=== PATIENT | male | born 1970 | race Caucasian/White ===

== ENCOUNTER 2022-07-15 08:28 | Inpatient (IN) ==
[2022-07-15 10:14] LABS: Basophils # (Auto) 0.01 K/mcL (0.00-0.30); Basophils % (Auto) 0.1 % (0.0-2.0); Eosinophils # (Auto) 0 K/mcL (0.00-0.70); Eosinophils % (Auto) 0 % (0.0-7.0); Hematocrit 46.4 % (40.1-51.0); Hemoglobin 14.7 g/dL (13.7-17.5); Lymphocytes # (Auto) 1.49 K/mcL (1.50-4.80); Lymphocytes % (Auto) 15.1 % (15.5-49.0); Mean Cell Volume 85.6 fL (80.0-100.0); Mean Corpuscular HGB Conc 31.7 g/dL (31.0-36.0); Mean Platelet Volume 10.7 fL (8.8-12.5); Monocytes # (Auto) 0.91 K/mcL (0.10-0.90); Monocytes % (Auto) 9.2 % (1.0-12.0); Neutrophils % (Auto) 75.2 % (38.0-78.0); Platelet Count 207 K/mcL (140-440); RBC 5.42 M/mcL (4.63-6.08); Red Cell Distribution Width 15.5 % (11.5-14.5); WBC 9.9 K/mcL (4.5-11.0)
[2022-07-15 10:35] LABS: ALT/SGPT 15 U/L (<40); AST/SGOT 34 U/L (<40); Albumin 4.4 gm/dL (3.2-5.2); Albumin/Globulin Ratio 1.3 (1.0-2.3); Alkaline Phosphatase 103 U/L (39-117); Bilirubin,Total 0.6 mg/dL (0.1-1.0); Blood Urea Nitrogen 21 mg/dL (6-20); Calcium 9.7 mg/dL (8.6-10.4); Carbon Dioxide 32 mmol/L (22-30); Chloride 98 mmol/L (96-108); Globulin 3.3 gm/dL (2.2-3.7); Glomerular Filtration Rate 104; Glucose 128 mg/dL (70-105)
--- NOTE | 2022-07-15 12:49 | Cat Scan Report ---
CLINICAL INFORMATION: Recurrent vomiting abdominal pain COMPARISON: Abdomen and pelvic CT TECHNIQUE: 0.625 mm helical slices were obtained from the mid heart through the subtrochanteric regions. Following reconstruction, 2.5 mm sagittal, coronal and axial reformatted images were processed and reviewed at bone and soft tissue windows.The exam was performed using radiation dose optimization techniques including, but not limited to, automated exposure control, adjustment of the mA and/or kV according to patient size and use of iterative reconstruction technique. FINDINGS: The lung bases are clear. No effusions. The visualized heart is grossly normal. Moderate hiatal hernia again noted. Abdominal images show the noncontrasted gallbladder is mildly enlarged with diffuse wall thickening and pericholecystic fluid compatible with cholecystitis. No stones identified. Intrahepatic and common bile ducts are normal caliber: CBD is 6 mm. Noncontrast liver, both kidneys, adrenal glands, spleen, pancreas and aorta, including aortic branches, are normal in size, configuration and attenuation without focal lesion. There is no free air, free fluid or adenopathy. Pelvic images show normal noncontrasted bladder is moderately distended. Prostate and seminal vesicles are normal. A large amount of stool is present within the rectum and distal sigmoid. Moderate amount of stool seen within the remainder of the colon stomach and small large bowel are normal caliber however. Appendix region is normal. Bone windows show no osseous abnormalities. IMPRESSION: 1. Acute cholecystitis. 2. Large amount of stool within the distal sigmoid and rectum-suspect fecal impaction. Moderate stool seen throughout the remainder of the colon. 3. Moderate hiatal hernia-stable 4. Moderate urinary bladder distention Interpreted and Authenticated by: Gus Echavarria 07/15/22
[2022-07-15] MEDS ORDERED: metroNIDAZOLE 500 MG/100 ML BAG IV SCH (13:45)
[2022-07-15] MEDS ORDERED: PIPERACILLIN SODIUM/TAZOBACTAM 3.375 GM in DEXTROSE 5% IN WATER 50 ML IV SCH (13:45)
--- NOTE | 2022-07-15 15:28 | Internal Med History&Physical ---
HPI History of Present Illness Patient information: Note initiated : 07/15/22 at 3:27 pm Service Date, if different from initiated Date: [] Patient: Dwight Salazar a 52 y/o M admitted on for possible small bowl obstruction. Chief Complaint: [] History of present illness: Mr. Salazar is a 52 year old male with history of schizophrenia, traumatic brain injury, parkinsonian syndrome, cognitive problems, limited verbal communication, history of priapism status post penile shunt, severe constipation, hiatal hernia, resides in long-term facility, patient's power of disk sharpener is Marcelo Zhao presented from long-term facility with multiple episodes of vomiting. History is limited since patient is pretty much nonverbal. On presentation patient had temp of 99.3, hemodynamically stable. CBC showed WBC 9.9, hemoglobin 14.7, normal renal and liver function CT scan abdominal pelvis without contrast showed gallbladder mildly enlarged, diffuse wall thickening, pericholecystic fluid compatible with cholecystitis. No gallstones identified, intrahepatic and common bile ducts are normal caliber, CBD 6 mm. Bladder is moderately distended, prostate and seminal vesicle are normal. Large amount of stool is present within the rectum and distal sigmoid, moderate amount of stool within the remainder of colon. small bowel normal caliber. On evaluation patient was laying in bed comfortably, he was not having any nausea or vomiting. Abdominal exam demonstrated some voluntary guarding as patient would tense his abdomen in anticipation of exam but no tenderness, rebound or rigidity. Ultrasound abdomen showed gallstones and again cholecystitis. Review of systems 14 point review of system completed. It was negative except mentioned above. Review of system was also limited due to patient limited communication Physical examination General General appearance: Present alert slightly unkempt, appears comfortable, nontoxic Head Head: Present atraumatic and normocephalic Eye Eye: Present normal appearance and EOMI ENT ENT: Present normal exam and mucous membranes moist Neck Neck: Present normal inspection and full ROM Chest Chest: Present normal inspection and symmetric chest wall rise Respiratory Respiratory: Absent respiratory distress Cardiovascular Cardiovascular: Present regular rate and normal rhythm Adbominal Abdominal: Present soft; Absent tenderness : Present circumcised no evidence of priapism Extremities Extremities: Present normal inspection and full ROM Neurological Neurological: Present alert, cognitive deficits due to TBI, follows command intermittently Psychiatric Psychiatric: Present normal affect and normal mood Skin Skin: Present warm (WNL), dry and normal color Assessment and plan 52 year old male with history of schizophrenia, traumatic brain injury, parkinsonian syndrome, cognitive problems, limited verbal communication, history of priapism status post penile shunt, severe constipation presented with multiple episodes of vomiting. Acute calculus cholecystitis CT scan abdomen without contrast with mildly enlarged gallbladder, wall thickening and pericholecystic fluid concerning for cholecystitis. Ultrasound gallbladder showed gallstones and cholecystitis. Patient with no fever, LFTs normal and lipase normal. Abdominal exam equivocal. Dr. Sanford and seen patient and will be following patient Severe constipation Dr. Jeff plans to do manual disimpaction in ER. Patient will need aggressive bowel regimen. Will give Fleet enema twice daily. We will keep him n.p.o. since patient was having nausea and vomiting. Schizophrenia, continue home meds Traumatic brain injury, at baseline Parkinsonian syndrome, continue home meds DVT prophylaxis with SCDs CODE STATUS, DNR/DNI Total time taken 50 minutes PFSH PFSH All Active Problems (Updated 07/15/22 @ 16:16 by Angelo Sanford MD) Nausea & vomiting (Acute) Priapism (Acute) Anemia (Acute) Urinary retention (Acute) Schizophrenia (Acute) Parkinsonian syndrome (Acute) Acute constipation (Acute) MEDS/ALLERGIES Home Medications and Allergies Home Medications Medication Instructions Recorded Confirmed Type acetaminophen 325 mg tablet 650 mg PO Q6H PRN pain 07/30/21 11/13/21 History carbidopa 25 mg-levodopa 250 mg 0.5 tab PO TID 07/30/21 08/11/21 History tablet citalopram 20 mg tablet 20 mg PO DAILY 07/30/21 11/13/21 History divalproex 125 mg tablet,delayed 125 mg PO TID 07/30/21 11/13/21 History release (Depakote) docusate sodium 100 mg capsule 100 mg PO BID 07/30/21 11/13/21 History (Colace) quetiapine 100 mg tablet (Seroquel) 100 mg PO QHS 07/30/21 11/13/21 History risperidone 2 mg tablet (Risperdal) 2 mg PO QDAY 07/30/21 11/13/21 History simethicone 80 mg tablet 80 mg PO TID 07/30/21 11/13/21 History tamsulosin 0.4 mg capsule (Flomax) 0.4 mg PO 1500 07/30/21 11/13/21 History haloperidol 5 mg tablet 2.5 mg PO QDAY PRN Agitation #10 08/01/21 11/13/21 Rx tabs tramadol 50 mg tablet 50 mg PO TID PRN Pain, Moderate 08/01/21 11/13/21 Rx #10 tabs bisacodyl 10 mg rectal suppository 10 mg DC QDAY PRN 08/11/21 11/13/21 History (Dulcolax (bisacodyl)) famotidine 20 mg tablet 20 mg PO QDAY 08/11/21 11/13/21 History fluticasone propionate 50 1 spray intranasal QDAY 08/11/21 11/13/21 History mcg/actuation nasal spray,suspension magnesium hydroxide 400 mg/5 mL 30 ml PO QDAY PRN 08/11/21 11/13/21 History oral suspension (Milk of Magnesia) sodium phosphates 19 gram-7 118 ml DC ONCE 08/11/21 11/13/21 History gram/118 mL enema (Fleet Enema) bisacodyl 10 mg rectal suppository 10 mg DC QDAY #3 ea 05/08/22 Rx (Dulcolax (bisacodyl)) Allergies Allergy/AdvReac Type Severity Reaction Status Date / Time azithromycin Allergy Unknown Other Verified 07/15/22 18:13 Erythromycin Base Allergy Unknown Other Verified 07/15/22 18:13 nitrofurantoin Allergy Unknown Other Verified 07/15/22 18:13 [From Macrobid] tetracycline Allergy Unknown Other Verified 07/15/22 18:13 EXAM Constitutional Vitals: Temp Pulse BP Pulse Ox O2 Del Method 99.3 F H 72 103/76 93 Room Air 07/15/22 08:35 07/15/22 11:16 07/15/22 09:16 07/15/22 08:35 07/15/22 08:35 DATA Data Completed and Pending Labs: Labs from last 24 hours 07/15/22 07/15/22 09:50 09:50 WBC 9.9 RBC 5.42 Hgb 14.7 Hct 46.4 MCV 85.6 MCH 27.1 MCHC 31.7 RDW 15.5 H Plt Count 207 MPV 10.7 Immature Gran % (Auto) 0.4 Neut % (Auto) 75.2 Lymph % (Auto) 15.1 L [place] % (Auto) 9.2 Eos % (Auto) 0 Baso % (Auto) 0.1 Lymph # (Auto) 1.49 L [place] # (Auto) 0.91 H Eos # (Auto) 0 Baso # (Auto) 0.01 Immature Gran # 0.04 Absolute Neutrophils 7.42 Sodium 141 Potassium 4.3 Chloride 98 Carbon Dioxide 32 H Anion Gap 11.0 BUN 21 H Creatinine 0.8 GFR Calculation 104 Glucose 128 H Calcium 9.7 Total Bilirubin 0.6 AST 34 ALT 15 Alkaline Phosphatase 103 Total Protein 7.7 Albumin 4.4 Globulin 3.3 Albumin/Globulin Ratio 1.3 Lipase 23 A/P Time Spent With Patient Time: Total time spent is greater than 50% in coordination of care (as documented) at patient's floor/unit and/or counseling patient:
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
--- NOTE | 2022-07-15 16:18 | General Surgery Consult Note ---
HPI Date of Consult Consult Date: 07/15/22 Primary Care Provider: PCP No Consult Narrative Patient Information: Note initiated : 07/15/22 at 4:14 pm Service Date, if different from initiated Date: [] Patient: Dwight Salazar 52 y/o M admitted on for possible small bowl obstruction. Patient was referred over for 1 day history of nausea and vomiting from his care facility. Patient has significant past medical history of a TBI and patient is noncommunicative. Patient was brought in and a CT scan and laboratory data were done. CT scan is significant for a large stool burden in the rectum, distended bladder and what is read as acute cholecystitis without evidence of cholelithiasis. I was asked to see the patient to evaluate him for a calculus cholecystitis. Chief Complaint: [] Chief complaint: Nausea and emesis Reason for consult: "[place] cholecystitis" cc:: CC: Review of Systems Review of systems: All systems are reviewed, negative other than above PFSH PFSH All Active Problems (Updated 07/15/22 @ 16:16 by Angelo Sanford MD) Nausea & vomiting (Acute) Priapism (Acute) Anemia (Acute) Urinary retention (Acute) Schizophrenia (Acute) Parkinsonian syndrome (Acute) Acute constipation (Acute) MEDS/ALLERGIES Home Medications and Allergies Home Medications Medication Instructions Recorded Confirmed Type acetaminophen 325 mg tablet 650 mg PO Q6H PRN pain 07/30/21 11/13/21 History carbidopa 25 mg-levodopa 250 mg 0.5 tab PO TID 07/30/21 08/11/21 History tablet citalopram 20 mg tablet 20 mg PO DAILY 07/30/21 11/13/21 History divalproex 125 mg tablet,delayed 125 mg PO TID 07/30/21 11/13/21 History release (Depakote) docusate sodium 100 mg capsule 100 mg PO BID 07/30/21 11/13/21 History (Colace) quetiapine 100 mg tablet (Seroquel) 100 mg PO QHS 07/30/21 11/13/21 History risperidone 2 mg tablet (Risperdal) 2 mg PO QDAY 07/30/21 11/13/21 History simethicone 80 mg tablet 80 mg PO TID 07/30/21 11/13/21 History tamsulosin 0.4 mg capsule (Flomax) 0.4 mg PO 1500 07/30/21 11/13/21 History haloperidol 5 mg tablet 2.5 mg PO QDAY PRN Agitation #10 08/01/21 11/13/21 Rx tabs tramadol 50 mg tablet 50 mg PO TID PRN Pain, Moderate 08/01/21 11/13/21 Rx #10 tabs bisacodyl 10 mg rectal suppository 10 mg RI QDAY PRN 08/11/21 11/13/21 History (Dulcolax (bisacodyl)) famotidine 20 mg tablet 20 mg PO QDAY 08/11/21 11/13/21 History fluticasone propionate 50 1 spray intranasal QDAY 08/11/21 11/13/21 History mcg/actuation nasal spray,suspension magnesium hydroxide 400 mg/5 mL 30 ml PO QDAY PRN 08/11/21 11/13/21 History oral suspension (Milk of Magnesia) sodium phosphates 19 gram-7 118 ml RI ONCE 08/11/21 11/13/21 History gram/118 mL enema (Fleet Enema) bisacodyl 10 mg rectal suppository 10 mg RI QDAY #3 ea 05/08/22 Rx (Dulcolax (bisacodyl)) Allergies Allergy/AdvReac Type Severity Reaction Status Date / Time azithromycin Allergy Unknown Other Verified 07/15/22 08:28 Erythromycin Base Allergy Unknown Other Verified 07/15/22 08:28 nitrofurantoin Allergy Unknown Other Verified 07/15/22 08:28 [From Macrobid] tetracycline Allergy Unknown Other Verified 07/15/22 08:28 Physical Examination Vital Signs Vital signs: Temp Pulse BP Pulse Ox O2 Del Method 99.3 F H 72 103/76 93 Room Air 07/15/22 08:35 07/15/22 11:16 07/15/22 09:16 07/15/22 08:35 07/15/22 08:35 General physical appearance General physical exam: well developed, well nourished and no distress Eyes Eye exam: PERRL and normal ocular movement ENT ENT exam: normal pinna, normal nares, normal mucosa, no hearing loss and no congestion Head Head exam IM: Present atraumatic and normocephalic Neck Neck exam: no masses, no bruits, trachea midline, no lymphadenopathy and no venous distension Cardiovascular Cardiovascular exam IM: Present normal rate and rhythm Respiratory Respiratory exam: normal expansion, normal respiratory effort, clear to percuss ion and clear to auscultation Abdomen Abdomen: Present soft, non tender and bowel sounds; Absent wound, masses, guarding, rigid, rebound or distended Hernia: Present none Genitourinary Genitourinary (Male): Present normal penis with no external lesions Rectum Rectum: Present normal sphincter tone, no hemorrhoids, no tenderness, no masses and no bleeding Integumentary Integumentary: Present no rash, no growths and no abnormal pigmentation Neurologic Neurologic: Present normal coordination and normal sensation Musculoskeletal Musculoskeletal: Present normal gait and normal posture Psychiatric Psychiatric: Present oriented to time, oriented to person, oriented to place, speech is normal and memory intact Results Labs 07/15/22 09:50 07/15/22 09:50 Labs: Abnormal lab results 07/15/22 07/15/22 Range/Units 09:50 09:50 RDW 15.5 H (11.5-14.5) % Lymph % (Auto) 15.1 L (15.5-49.0) % Lymph # (Auto) 1.49 L (1.50-4.80) K/mcL [place] # (Auto) 0.91 H (0.10-0.90) K/mcL Carbon Dioxide 32 H (22-30) mmol/L BUN 21 H (6-20) mg/dL Glucose 128 H (70-105) mg/dL Diabetes panel 07/15/22 Range/Units 09:50 Sodium 141 (133-145) mmol/L Potassium 4.3 (3.3-5.1) mmol/L Chloride 98 (96-108) mmol/L Carbon Dioxide 32 H (22-30) mmol/L BUN 21 H (6-20) mg/dL Creatinine 0.8 (0.7-1.2) mg/dL Glucose 128 H (70-105) mg/dL Calcium 9.7 (8.6-10.4) mg/dL AST 34 (<40) U/L ALT 15 (<40) U/L Alkaline Phosphatase 103 (39-117) U/L Total Protein 7.7 (5.9-8.4) gm/dL Albumin 4.4 (3.2-5.2) gm/dL Calcium panel 07/15/22 Range/Units 09:50 Calcium 9.7 (8.6-10.4) mg/dL Albumin 4.4 (3.2-5.2) gm/dL Pituitary panel 07/15/22 Range/Units 09:50 Sodium 141 (133-145) mmol/L Potassium 4.3 (3.3-5.1) mmol/L Chloride 98 (96-108) mmol/L Carbon Dioxide 32 H (22-30) mmol/L BUN 21 H (6-20) mg/dL Creatinine 0.8 (0.7-1.2) mg/dL Glucose 128 H (70-105) mg/dL Calcium 9.7 (8.6-10.4) mg/dL Adrenal panel 07/15/22 Range/Units 09:50 Sodium 141 (133-145) mmol/L Potassium 4.3 (3.3-5.1) mmol/L Chloride 98 (96-108) mmol/L Carbon Dioxide 32 H (22-30) mmol/L BUN 21 H (6-20) mg/dL Creatinine 0.8 (0.7-1.2) mg/dL Glucose 128 H (70-105) mg/dL Calcium 9.7 (8.6-10.4) mg/dL Total Bilirubin 0.6 (0.1-1.0) mg/dL AST 34 (<40) U/L ALT 15 (<40) U/L Alkaline Phosphatase 103 (39-117) U/L Total Protein 7.7 (5.9-8.4) gm/dL Albumin 4.4 (3.2-5.2) gm/dL All other labs normal. Imaging CT scan - abdomen: image reviewed A/P Assessment and plan (1) Acute constipation: Assessment and plan: Patient presents with nausea and emesis for 1 day Plan: CT scan reviewed, no evidence of stones on CT scan, the diagnosis of acalculous cholecystitis is generally made in a patient in the setting of severe illness. Patient is afebrile, normal vital signs, normal white count, no elevated LFTs, negative right upper quadrant abdominal pain, negative Ritchie sign. Therefore acalculous cholecystitis is very unlikely. Recommendations: Right upper quadrant ultrasound to evaluate for possible Cholelithiasis. Nausea is likely secondary to severe constipation, would recommend bowel regimen. Status: Acute (2) Urinary retention: Status: Acute (3) Nausea & vomiting: Status: Acute Time Spent With Patient Time: Total time spent is greater than 50% in coordination of care (as documented) at patient's floor/unit and/or counseling patient:
[2022-07-15] MEDS: 0.9 % SODIUM CHLORIDE 1,000 ML IV SCH (16:45)
[2022-07-15] MEDS ORDERED: MIDAZOLAM 5 MG/5 ML VIAL IV ONE (17:37)
[2022-07-15] MEDS ORDERED: fentaNYL 100 MCG/2 ML VIAL IV ONE ×2 (17:37→18:18)
[2022-07-15] MEDS ORDERED: MIDAZOLAM 2 MG/2 ML VIAL IV ONE ×2 (18:13→18:28)
[2022-07-15] MEDS ORDERED: FLEETS ADULT ENEMA PR ONE (18:32)
--- NOTE | 2022-07-15 18:55 | Ultrasound Report ---
CLINICAL INFORMATION: vomitting , thickended gallbladder COMPARISON: None. FINDINGS: Gallbladder is mildly distended with marked wall thickening up to 9 mm. There is sludge sludge and multiple stones within the gallbladder. There is also focal tenderness over the gallbladder on probe palpation (positive sonographic Ritchie's sign). Common bile duct is normal at 3 mm. Liver and pancreas are normal in size and echotexture. No free fluid IMPRESSION: Cholecystitis. Stones are identified Interpreted and Authenticated by: Gus Echavarria 07/15/22
[2022-07-15] MEDS ORDERED: ACETAMINOPHEN 325 MG TABLET PO PRN (21:29)
[2022-07-15] MEDS ORDERED: oxyCODONE IR 5 MG TABLET PO PRN (21:29)
[2022-07-15] MEDS ORDERED: ONDANSETRON 4 MG/2 ML VIAL IV PRN (21:29)
[2022-07-15] MEDS: LACTATED RINGERS 1,000 ML IV SCH (21:50)
[2022-07-15] MEDS: 0.9 % SODIUM CHLORIDE 10 ML SYRINGE IV SCH (21:50)
[2022-07-15] MEDS: DOCUSATE SODIUM 100 MG CAPSULE PO SCH (22:10)
[2022-07-15] MEDS: SENNOSIDES 1 TABLET PO SCH (22:10)
[2022-07-15] MEDS: PIPERACILLIN SODIUM/TAZOBACTAM 3.375 GM in DEXTROSE 5% IN WATER 50 ML IV SCH (22:45)
[2022-07-15] MEDS: FLEETS ADULT ENEMA PR SCH (23:30)
[2022-07-16] MEDS: 0.9 % SODIUM CHLORIDE 1,000 ML IV SCH (02:37)
[2022-07-16] MEDS: 0.9 % SODIUM CHLORIDE 10 ML SYRINGE IV SCH ×3 (04:12→20:47)
[2022-07-16] MEDS: PIPERACILLIN SODIUM/TAZOBACTAM 3.375 GM in DEXTROSE 5% IN WATER 50 ML IV SCH ×4 (04:12→17:54)
[2022-07-16 06:54] LABS: Basophils # (Auto) 0.01 K/mcL (0.00-0.30); Basophils % (Auto) 0.1 % (0.0-2.0); Eosinophils # (Auto) 0.01 K/mcL (0.00-0.70); Eosinophils % (Auto) 0.1 % (0.0-7.0); Hemoglobin 11.8 g/dL (13.7-17.5); Lymphocytes # (Auto) 1.68 K/mcL (1.50-4.80); Lymphocytes % (Auto) 17.4 % (15.5-49.0); Mean Cell Volume 84.7 fL (80.0-100.0); Mean Corpuscular HGB Conc 31.9 g/dL (31.0-36.0); Mean Platelet Volume 11.6 fL (8.8-12.5); Monocytes # (Auto) 0.86 K/mcL (0.10-0.90); Monocytes % (Auto) 8.9 % (1.0-12.0); Neutrophils % (Auto) 73.2 % (38.0-78.0); Platelet Count 180 K/mcL (140-440); RBC 4.37 M/mcL (4.63-6.08); Red Cell Distribution Width 15.4 % (11.5-14.5); WBC 9.6 K/mcL (4.5-11.0)
[2022-07-16 07:21] LABS: ALT/SGPT 14 U/L (<40); AST/SGOT 19 U/L (<40); Albumin 3.5 gm/dL (3.2-5.2); Albumin/Globulin Ratio 1.4 (1.0-2.3); Alkaline Phosphatase 80 U/L (39-117); Bilirubin,Total 0.8 mg/dL (0.1-1.0); Blood Urea Nitrogen 20 mg/dL (6-20); Calcium 8.4 mg/dL (8.6-10.4); Carbon Dioxide 30 mmol/L (22-30); Chloride 105 mmol/L (96-108); Globulin 2.5 gm/dL (2.2-3.7); Glomerular Filtration Rate 110; Glucose 114 mg/dL (70-105)
[2022-07-16] MEDS: LACTATED RINGERS 1,000 ML IV SCH ×2 (09:21→23:20)
[2022-07-16] MEDS: FLEETS ADULT ENEMA PR SCH ×2 (09:22→20:47)
[2022-07-16] MEDS: DOCUSATE SODIUM 100 MG CAPSULE PO SCH ×2 (09:22→20:41)
--- NOTE | 2022-07-16 10:01 | General Surgery Progress Note ---
SUBJECTIVE Subjective Patient information: Note initiated : 07/16/22 at 9:56 am Service Date, if different from initiated Date: [] Patient: Dwight Salazar 52 y/o M admitted on 07/15/22 for possible small bowl obstruction, Cholecystitis. Chief Complaint: [] Principal diagnosis: Severe constipation, cholelithiasis, questionable cholecystitis Interval history: Patient continues to do well overnight, no further nausea and vomiting, patient received an enema and had a large bowel movement. Pertinent ROS: No fevers chills nausea or vomiting overnight Constitutional Vitals: Vital Signs Temp Pulse Resp BP Pulse Ox O2 Del Method 97.2 F 78 16 109/66 99 Room Air 07/16/22 03:41 07/16/22 08:00 07/16/22 08:00 07/16/22 08:00 07/16/22 08:00 07/16/22 08:00 Period Temp Pulse Resp BP Sys/Dobbins Pulse Ox O2 Del Method O2 Flow Rate Last 24 Hr 97.2 F-99.1 F 62-95 12-23 87-135/55-96 93-99 Room Air-Room Air Intake and Output 07/15/22 07/16/22 07/16/22 19:59 03:59 11:59 Intake Total 1150 50 921 Output Total 1 Balance 1150 50 920 Weight 121 lb 9 oz Intake & Output: Intake & Output 07/15/22 07/16/22 07/16/22 19:59 03:59 11:59 Intake Total 1150 50 921 Output Total 1 Balance 1150 50 920 Weight 121 lb 9 oz Intake: IV 1150 50 921 Sodium Chloride 0.9% 1,000 ml @ 1000 250 mls/hr IV .Q4H [facility] Rx#: [id number] Lactated Ringers 1,000 ml @ 75 821 mls/hr IV .[id number] [facility] Rx#: [id number] Zosyn 3.375 gm In Dextrose 5% 50 50 100 in Water 50 ml @ 100 mls/hr IV Q6H [facility] Rx#:[id number] Output: # of times incontinent of urine 1 Other: Urine Odor Strong Stool Size Large Stool Color Brown Stool Consistency Formed Loose # Voids 1 1 General appearance: cooperative and no acute distress Respiratory Respiratory exam: Present normal respiratory exam Cardiovascular Cardiovascular exam: Present normal rate and rhythm GI/Abdominal GI/Abdominal exam: Present normal bowel sounds and soft; Absent distended, firm, guarding, rebound or tenderness A/P Assessment and plan (1) Cholelithiasis: Assessment and plan: This is a pleasant 52-year-old gentleman with a history of TBI who is noncommunicative who presents with nausea and vomiting. Work-up is significant for severe constipation and questionable cholecystitis on CT scan and ultrasound. Patient's white blood cell count remains normal, LFTs remain normal. No abdominal pain on physical exam. This likely represents Maria Del Carmen lithiasis and not cholecystitis at this time. Agree with hospitalist, enemas to assist with constipation, advance diet as tolerated. If nausea and emesis return on diet we will reconsider possible cholecystectomy Plan: Advance diet as tolerated. I will continue to follow. Status: Acute (2) Nausea & vomiting: Status: Acute Time Spent With Patient Time: Total time spent is greater than 50% in coordination of care (as documented) at patient's floor/unit and/or counseling patient:
[2022-07-16] MEDS ORDERED: traMADol (PP) 50 MG TABLET (#4) PO PRN (10:55)
--- NOTE | 2022-07-16 10:55 | Internal Med Progress Note ---
SUBJECTIVE Subjective Patient information: Note initiated : 07/16/22 at 10:47 am Service Date, if different from initiated Date: [] Patient: Dwight Salazar a 52 y/o M admitted on 07/15/22 for possible small bowl obstruction, Cholecystitis. Chief Complaint: [] Principal diagnosis: Severe constipation, cholelithiasis, questionable cholecystitis Additional PMFSH (Level 3 Only): History of present illness: Mr. Salazar is a 52 year old male with history of schizophrenia, traumatic brain injury, parkinsonian syndrome, cognitive problems, limited verbal communication, history of priapism status post penile shunt, severe constipation, hiatal hernia, resides in correction facility, patient's power of divorce attorney is Marcelo Zhao presented from correction facility with multiple episodes of vomiting. History is limited since patient is pretty much nonverbal. On presentation patient had temp of 99.3, hemodynamically stable. CBC showed WBC 9.9, hemoglobin 14.7, normal renal and liver function CT scan abdominal pelvis without contrast showed gallbladder mildly enlarged, diffuse wall thickening, pericholecystic fluid compatible with cholecystitis. No gallstones identified, intrahepatic and common bile ducts are normal caliber, CBD 6 mm. Bladder is moderately distended, prostate and seminal vesicle are normal. Large amount of stool is present within the rectum and distal sigmoid, moderate amount of stool within the remainder of colon. small bowel normal caliber. On evaluation patient was laying in bed comfortably, he was not having any nausea or vomiting. Abdominal exam demonstrated some voluntary guarding as patient would tense his abdomen in anticipation of exam but no tenderness, rebound or rigidity. Ultrasound abdomen showed gallstones and again cholecystitis. Overnight patient has had no fever, no nausea or vomiting. He had a large bowel movement after receiving enema. On evaluation he was doing fairly well without any distress Review of system No fever or chills No nausea vomiting, he had a bowel movement no longer constipation No chest pain or palpitation No skin rashes No hematuria Physical examination General General appearance: Present alert slightly unkempt, appears comfortable, nontoxic Head Head: Present atraumatic and normocephalic Eye Eye: Present normal appearance and EOMI ENT ENT: Present normal exam and mucous membranes moist Neck Neck: Present normal inspection and full ROM Chest Chest: Present normal inspection and symmetric chest wall rise Respiratory Respiratory: Absent respiratory distress Cardiovascular Cardiovascular: Present regular rate and normal rhythm Adbominal Abdominal: Present soft; Absent tenderness : Present circumcised no evidence of priapism Extremities Extremities: Present normal inspection and full ROM Neurological Neurological: Present alert, cognitive deficits due to TBI, follows command intermittently Psychiatric Psychiatric: Present normal affect and normal mood Skin Skin: Present warm (WNL), dry and normal color Assessment and plan 52 year old male with history of schizophrenia, traumatic brain injury, parkinsonian syndrome, cognitive problems, noncommunicative, constipation presented with multiple episodes of vomiting and was found to have severe constipation and questionable cholecystitis on CT scan. Severe constipation Resolving with Fleet enema and bowel regimen Questionable cholecystitis CT scan abdomen without contrast with mildly enlarged gallbladder, wall thickening and pericholecystic fluid concerning for cholecystitis. Ultrasound gallbladder showed gallstones and cholecystitis. Patient white cell count remains normal, LFTs unremarkable, no nausea vomiting or abdominal pain on exam. This likely represents cholelithiasis. Discussed with surgery. Will advance diet as tolerated, continue with enemas to resolve constipation. If nausea and vomiting return surgery will reconsider possible cholecystectomy. Schizophrenia, continue home meds Traumatic brain injury, at baseline Parkinsonian syndrome, continue home meds DVT prophylaxis with SCDs CODE STATUS, DNR/DNI Total time taken 40 minutes Constitutional Vitals: Vital Signs Temp Pulse Resp BP Pulse Ox O2 Del Method 98.3 F 78 16 109/66 99 Room Air 07/16/22 08:30 07/16/22 08:00 07/16/22 08:00 07/16/22 08:00 07/16/22 08:00 07/16/22 08:00 Period Temp Pulse Resp BP Sys/Dobbins Pulse Ox O2 Del Method O2 Flow Rate Last 24 Hr 97.2 F-99.1 F 62-95 12-23 87-135/55-96 93-99 Room Air-Room Air Intake and Output 07/15/22 07/16/22 07/16/22 19:59 03:59 11:59 Intake Total 1150 50 921 Output Total 1 Balance 1150 50 920 Weight 55.14 kg Intake & Output: Intake & Output 07/15/22 07/16/22 07/16/22 19:59 03:59 11:59 Intake Total 1150 50 921 Output Total 1 Balance 1150 50 920 Weight 55.14 kg Intake: IV 1150 50 921 Sodium Chloride 0.9% 1,000 ml @ 1000 250 mls/hr IV .Q4H [facility] Rx#: [id number] Lactated Ringers 1,000 ml @ 75 821 mls/hr IV .[id number] [facility] Rx#: [id number] Zosyn 3.375 gm In Dextrose 5% 50 50 100 in Water 50 ml @ 100 mls/hr IV Q6H [facility] Rx#:[id number] Output: # of times incontinent of urine 1 Other: Urine Odor Strong Stool Size Large Large Stool Color Brown Brown Yellow Stool Consistency Formed Soft Loose Loose # Voids 1 1 # of times incontinent of 1 Bowels OBJ DATA Labs 07/16/22 05:20 07/16/22 05:20 Labs: Abnormal Lab Results 07/16/22 07/16/22 07/15/22 05:20 05:20 09:50 RBC 4.37 L Hgb 11.8 L Hct 37.0 L RDW 15.4 H Lymph % (Auto) Lymph # (Auto) Ralls # (Auto) Potassium 3.0 L Carbon Dioxide 32 H BUN 21 H Glucose 114 H 128 H Calcium 8.4 L 07/15/22 09:50 RBC Hgb Hct RDW 15.5 H Lymph % (Auto) 15.1 L Lymph # (Auto) 1.49 L Ralls # (Auto) 0.91 H Potassium Carbon Dioxide BUN Glucose Calcium Meds: Medications Acetaminophen (Acetaminophen 325 Mg Tablet) 650 mg PO Q6HP PRN; Protocol PRN Reason: Per Pain Protocol/Fever > 101 Docusate Sodium (Docusate Sodium 100 Mg Capsule) 100 mg PO BID [facility] Last Admin: 07/16/22 09:22 Dose: 100 mg Lactated Ringer's (Lactated Ringers) 1,000 mls @ 75 mls/hr IV .[id number] [facility] Last Admin: 07/16/22 09:21 Dose: 75 mls/hr Piperacillin Sod/Tazobactam (Sod 3.375 gm/ Dextrose) 50 mls @ 100 mls/hr IV Q6H [facility]; Protocol Last Infusion: 07/16/22 09:22 Dose: Infused Ondansetron HCl (Ondansetron 4 Mg/2 Ml Vial) 4 mg IV Q6HP PRN PRN Reason: Nausea And Vomiting Oxycodone HCl (Oxycodone Ir 5 Mg Tablet) 5 mg PO Q4HP PRN; Protocol PRN Reason: Per Pain Protocol Senna (Sennosides 1 Tablet) 2 tab PO HS [facility] Last Admin: 07/15/22 22:10 Dose: 2 tab Sodium Biphosphate/Sodium Phosphate (Fleets Adult Enema) 1 dose FL BID [facility] Last Admin: 07/16/22 09:22 Dose: 1 dose Sodium Chloride (0.9 % Sodium Chloride 10 Ml Syringe) 10 ml IV Q8 [facility] Last Admin: 07/16/22 04:12 Dose: 10 ml A/P Time Spent With Patient Time: Total time spent is greater than 50% in coordination of care (as documented) at patient's floor/unit and/or counseling patient:
[2022-07-16] MEDS ORDERED: SENNOSIDES 1 TABLET PO SCH (11:00)
[2022-07-16] MEDS ORDERED: DOCUSATE SODIUM 100 MG CAPSULE PO SCH (11:00)
[2022-07-16] MEDS ORDERED: traMADol 50 MG TABLET PO PRN (11:08)
[2022-07-16] MEDS: MAGNESIUM HYDROXIDE 30 ML ORAL.SUSP PO SCH (12:01)
[2022-07-16] MEDS: CARBIDOPA/LEVODOPA 10/100 TABLET PO SCH ×2 (14:59→20:40)
[2022-07-16] MEDS: DIVALPROEX 125 MG CAP.SPRINK PO SCH ×2 (14:59→20:41)
[2022-07-16] MEDS ORDERED: TAMSULOSIN 0.4 MG CAPSULE PO SCH (15:00)
[2022-07-16] MEDS: SENNOSIDES 1 TABLET PO SCH (20:40)
[2022-07-16] MEDS ORDERED: RISPERDAL 1 MG PO SCH (21:00)
[2022-07-16] MEDS ORDERED: QUEtiapine 25 MG TABLET PO SCH (21:00)
[2022-07-17] MEDS: PIPERACILLIN SODIUM/TAZOBACTAM 3.375 GM in DEXTROSE 5% IN WATER 50 ML IV SCH ×2 (00:02→08:52)
[2022-07-17] MEDS: 0.9 % SODIUM CHLORIDE 10 ML SYRINGE IV SCH (06:10)
[2022-07-17] MEDS ORDERED: POTASSIUM CHLORIDE 20 MEQ/15 ML ML PO SCH (08:30)
[2022-07-17] MEDS: DOCUSATE SODIUM 100 MG CAPSULE PO SCH (08:52)
[2022-07-17] MEDS: DIVALPROEX 125 MG CAP.SPRINK PO SCH (08:52)
[2022-07-17] MEDS: CARBIDOPA/LEVODOPA 10/100 TABLET PO SCH (08:53)
[2022-07-17] MEDS: FLEETS ADULT ENEMA PR SCH (08:53)
[2022-07-17] MEDS: MAGNESIUM HYDROXIDE 30 ML ORAL.SUSP PO SCH (08:53)
[2022-07-17] MEDS ORDERED: CITALOPRAM 20 MG TABLET PO SCH (09:00)
[2022-07-17] MEDS ORDERED: risperiDONE 1 MG TABLET PO SCH (09:00)
[2022-07-17 10:50] LABS: Basophils # (Auto) 0.02 K/mcL (0.00-0.30); Basophils % (Auto) 0.2 % (0.0-2.0); Eosinophils # (Auto) 0.03 K/mcL (0.00-0.70); Eosinophils % (Auto) 0.3 % (0.0-7.0); Hematocrit 37.7 % (40.1-51.0); Hemoglobin 11.9 g/dL (13.7-17.5); Lymphocytes # (Auto) 1.59 K/mcL (1.50-4.80); Lymphocytes % (Auto) 17.5 % (15.5-49.0); Mean Cell Volume 85.3 fL (80.0-100.0); Mean Corpuscular HGB Conc 31.6 g/dL (31.0-36.0); Mean Platelet Volume 11.4 fL (8.8-12.5); Monocytes # (Auto) 0.72 K/mcL (0.10-0.90); Monocytes % (Auto) 7.9 % (1.0-12.0); Neutrophils % (Auto) 72.3 % (38.0-78.0); Platelet Count 158 K/mcL (140-440); RBC 4.42 M/mcL (4.63-6.08); Red Cell Distribution Width 14.9 % (11.5-14.5); WBC 9.1 K/mcL (4.5-11.0)
[2022-07-17 11:33] LABS: ALT/SGPT 6 U/L (<40); AST/SGOT 14 U/L (<40); Albumin 3.4 gm/dL (3.2-5.2); Albumin/Globulin Ratio 1.4 (1.0-2.3); Alkaline Phosphatase 74 U/L (39-117); Bilirubin,Total 0.5 mg/dL (0.1-1.0); Blood Urea Nitrogen 15 mg/dL (6-20); Calcium 8.3 mg/dL (8.6-10.4); Carbon Dioxide 26 mmol/L (22-30); Chloride 106 mmol/L (96-108); Globulin 2.4 gm/dL (2.2-3.7); Glomerular Filtration Rate 117; Glucose 128 mg/dL (70-105)
--- NOTE | 2022-07-17 12:30 | Discharge Summary ---
Discharge Provider Provider IMPORTANT FOLLOW-UP INFORMATION FOR PCP: Patient information: Note initiated : 07/17/22 at 12:26 pm Service Date, if different from initiated Date: [] Patient: Dwight Salazar 52 y/o M admitted on 07/15/22 for possible small bowl obstruction, Cholecystitis. Chief Complaint: [] Date of admission: 07/15/22 21:17 Discharge date: 07/17/22 Primary care physician: PCP No Consults: 07/15/22 Consult to Physician [CONS] Stat Comment: Consulting Provider: Angelo Sanford Reason For Exam: Physician to Consult 07/15/22 14:01 Consult to Physician [CONS] Stat Comment: Consulting Provider: Miguelangel Ferguson Reason For Exam: Physician to Consult COURSE Hospital Course Hospital course: Mr. Salazar is a 52 year old male with history of schizophrenia, traumatic brain injury, parkinsonian syndrome, cognitive problems, limited verbal communication, history of priapism status post penile shunt, severe constipation, hiatal hernia, resides in care home facility, (patient's power of attorney recruiter is Marcelo Zhao) presented from care home facility with multiple episodes of vomiting. History is limited since patient is pretty much nonverbal. On presentation patient had temp of 99.3, hemodynamically stable. CBC showed WBC 9.9, hemoglobin 14.7, normal renal and liver function CT scan abdominal pelvis without contrast showed gallbladder mildly enlarged, diffuse wall thickening, pericholecystic fluid compatible with cholecystitis. No gallstones identified, intrahepatic and common bile ducts are normal caliber, CBD 6 mm. Bladder is moderately distended, prostate and seminal vesicle are normal. Large amount of stool is present within the rectum and distal sigmoid, moderate amount of stool within the remainder of colon. small bowel normal caliber. On evaluation patient was laying in bed comfortably, he was not having any nausea or vomiting. Abdominal exam demonstrated some voluntary guarding as patient would tense his abdomen in anticipation of exam but no tenderness, rebound or rigidity. Ultrasound abdomen showed gallstones and again cholecystitis. Patient was admitted for possible cholecystitis and severe constipation. Patient was started on IV Zosyn. Patient received Fleet enema and had multiple bowel movements and was kept on aggressive bowel regimen. His constipation resolved. He was seen in surgical consultation by Dr. Sanford. Patient white cell count remained normal, LFTs unremarkable, no nausea vomiting or abdominal pain on exam. This likely represents cholelithiasis and not cholecystitis at this time. Diet was advanced and patient tolerated it well without any issues. Surgery did not feel any intervention was needed. Patient will complete a 7- day course of antibiotic, prescription for Augmentin was given upon discharge. Review of system No fever or chills No nausea vomiting, constipation resolved No chest pain or palpitation No skin rashes No hematuria Physical examination General General appearance: Present alert, in no acute distress Head: Present atraumatic and normocephalic Eye Eye: Present normal appearance and EOMI ENT ENT: Present normal exam and mucous membranes moist Neck Neck: Present normal inspection and full ROM Chest Chest: Present normal inspection and symmetric chest wall rise Respiratory Respiratory: Absent respiratory distress Cardiovascular Cardiovascular: Present regular rate and normal rhythm Adbominal Abdominal: Present soft; Absent tenderness : Present circumcised no evidence of priapism Extremities Extremities: Present normal inspection and full ROM Neurological Neurological: Present alert, cognitive deficits due to TBI, follows command intermittently Psychiatric Psychiatric: Present normal affect and normal mood Skin Skin: Present warm (WNL), dry and normal color Discharge diagnoses Severe constipation Received aggressive bowel regimen and Fleet enema and this resolved. Recommend aggressive bowel regimen with MiraLAX, senna, docusate, milk of mag and Fleet enema as needed to aim for 1 bowel movement every day. Questionable cholecystitis CT scan abdomen without contrast with mildly enlarged gallbladder, wall thickening and pericholecystic fluid concerning for cholecystitis. Ultrasound gallbladder showed gallstones and cholecystitis. He was seen in surgical consultation by Dr. Sanford. Patient white cell count remained normal, LFTs unremarkable, no nausea vomiting or abdominal pain on exam. This likely represents cholelithiasis and not cholecystitis at this time. Diet was advanced and patient tolerated it well without any issues. Surgery did not feel any intervention was needed. Patient will complete a 7-day course of antibiotic, prescription for Augmentin was given upon discharge. Schizophrenia, continue home meds Traumatic brain injury, at baseline Parkinsonian syndrome, continue home meds DVT prophylaxis with SCDs CODE STATUS, DNR/DNI Disposition: Back to [facility] Total time taken 40 minutes Discharge diagnosis: Cholelithiasis, questionable cholecystitis, severe constipation Time Spent with Patient Time attestation: Total time spent providing and/or coordinating discharge services: Time spent: Greater than 30 minutes EXAM Constitutional Vitals: Temp Pulse Resp BP Pulse Ox O2 Del Method 98.2 F 86 18 123/68 99 Room Air 07/17/22 11:35 07/17/22 11:35 07/17/22 08:00 07/17/22 11:35 07/17/22 11:35 07/17/22 11:35 Discharge Data Data Completed and Pending Labs on day of discharge: Labs from last 24 hours 07/17/22 07/17/22 10:00 10:00 WBC 9.1 RBC 4.42 L Hgb 11.9 L Hct 37.7 L MCV 85.3 MCH 26.9 MCHC 31.6 RDW 14.9 H Plt Count 158 MPV 11.4 Immature Gran % (Auto) 1.8 H Neut % (Auto) 72.3 Lymph % (Auto) 17.5 Andrews % (Auto) 7.9 Eos % (Auto) 0.3 Baso % (Auto) 0.2 Lymph # (Auto) 1.59 Andrews # (Auto) 0.72 Eos # (Auto) 0.03 Baso # (Auto) 0.02 Immature Gran # 0.16 H Absolute Neutrophils 6.54 Sodium 141 Potassium 3.4 Chloride 106 Carbon Dioxide 26 Anion Gap 9.0 BUN 15 Creatinine 0.6 L GFR Calculation 117 Glucose 128 H Calcium 8.3 L Total Bilirubin 0.5 AST 14 ALT 6 Alkaline Phosphatase 74 Total Protein 5.8 L Albumin 3.4 Globulin 2.4 Albumin/Globulin Ratio 1.4 Preliminary micro results at discharge 07/15/22 13:45 Blood Culture - Preliminary Blood 07/15/22 13:45 Blood Culture - Preliminary Blood Discharge Plan Patient/Caregiver Discharge Instructions Activity: resume usual activities as tolerated Diet: Cardiac Instructions: Constipation (GEN) Prescriptions: New polyethylene glycol 3350 [Miralax] 17 gram powder in packet 17 g PO BID Qty: 60 0RF amoxicillin-pot clavulanate 875-125 mg tablet 1 tab PO BID Qty: 10 0RF Continued carbidopa-levodopa 25-250 mg Tablet 0.5 tab PO TID quetiapine [Seroquel] 100 mg Tablet 100 mg PO QHS risperidone [Risperdal] 2 mg Tablet 2 mg PO QDAY citalopram 20 mg Tablet 20 mg PO DAILY tamsulosin [Flomax] 0.4 mg Capsule 0.4 mg PO 1500 divalproex [Depakote] 125 mg Tablet,Delayed Release (Dr/Ec) 125 mg PO TID docusate sodium [Colace] 100 mg Capsule 100 mg PO BID simethicone 80 mg Tablet 80 mg PO TID acetaminophen 325 mg Tablet 650 mg PO Q6H PRN (Reason: pain) tramadol 50 mg Tablet 50 mg PO TID PRN (Reason: Pain, Moderate) Qty: 10 0RF Risperdal 3 mg PO HS sennosides [senna] 8.6 mg Tablet 8.6 mg PO QAM bisacodyl [Dulcolax (bisacodyl)] 10 mg suppository 10 mg [place] QDAY PRN (Reason: Constipation) famotidine 20 mg tablet 20 mg PO QDAY Fleet Enema 19-7 gram/118 mL enema 118 ml [place] QDP PRN (Reason: Constipation) fluticasone propionate 50 mcg/actuation spray,suspension 1 spray intranasal QDAY Rx Instructions: administer into each nostril magnesium hydroxide [Milk of Magnesia] 400 mg/5 mL suspension 30 ml PO Q72HP PRN (Reason: Constipation) Prescription drug monitoring program results: PDMP reviewed and no issues identified Follow Up Plan Follow up with: No,PCP [Primary Care Provider] - Patient Disposition: Xfer SNF Rehab Potential: Good I certify that the patient requires SNF services: Yes Overall status at discharge: patient is back to baseline Discharge Orders: Discharge Order (Routine); Ordered 07/17/22 Ordered By: Miguelangel Ferguson
== END 2022-07-17 14:09 | DRG 389 ==
LOC: ED 08:28 → MEDSUR 21:17
PROVIDERS: ADMIT Internal Medicine; ATTEND Internal Medicine